=== PATIENT | male | born 1950 | race Two or more races ===

== ENCOUNTER 2017-09-13 13:50 | Emergency (ER) | payer BC ==
[~2017-09-13] VITALS: Ht 170.2 cm; Wt 68.0 kg
[2017-09-13] MEDS ORDERED: Gadavist 7.5mMol/7.5ml vial IV PRN (14:45)
--- NOTE | 2017-09-13 14:54 | Emergency Room Report ---
History of Present Illness General Chief Complaint: Nausea, Vomiting, and Diarrhea Source: Patient Present Illness HPI This patient presents with 2 episodes of isolated vertigo today. The patient states when he woke up this morning around 6 AM and he got up he had this spinning sensation. He states that at that time he felt sweaty and nauseated but had no vomiting. He states his symptoms went away. He states that he went about his day normally. He has felt well all day. 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 He states that the second time was around 1:30 today. He states that this time he became nauseated and vomited. He denies any sweating. He states that now he feels fine. He states his symptoms are not reoccurring. He denies recent trauma. He states that he did have a headache in the back of his head this morning but that is since resolved. He denies change in vision. Denies weakness. He denies tingling or numbness. He denies fever or chills. He denies neck pain. He has no other complaints. Allergies: Coded Allergies: No Known Allergies (Unverified , 09/13/17) Patient History Past Medical History: see triage record, HTN, other - HLP Social History: Reports: smoking, alcohol use; Denies: drug use Reviewed Nursing Documentation: PMH: Agreed; PSxH: Agreed Nursing Documentation-PMH Past Medical History: No History, Except For Hx Hypertension: Yes Review of Systems All Other Systems: negative except mentioned in HPI Physical Exam Vital Signs Date Time Temp Pulse Resp B/P (MAP) Pulse Ox O2 Delivery O2 Flow Rate FiO2 09/13/17 13:59 97.3 81 18 156/89 95 Room Air 97.3 Sp02 EP Interpretation: reviewed, normal General Appearance: no apparent distress, alert, GCS 15, non-toxic Head: normocephalic, atraumatic Eyes: bilateral eye normal inspection, bilateral eye PERRL ENT: hearing grossly normal, normal pharynx, no angioedema, normal voice Neck: full range of motion, supple/symm/no masses Respiratory: chest non-tender, lungs clear, normal breath sounds, speaking full sentences Cardiovascular #1: regular rate, rhythm, no edema Gastrointestinal: normal bowel sounds, non tender, soft, non-distended, no guarding, no rebound Rectal: deferred Musculoskeletal: back normal, gait/station normal, normal range of motion, non- tender Neurologic: alert, oriented x3, responsive, motor strength/tone normal, sensory intact, cerebellar normal, speech normal Psychiatric: judgement/insight normal, memory normal, mood/affect normal, no suicidal/homicidal ideation Skin: normal color, no rash, warm/dry, well hydrated Lymphatic: no adenopathy Medical Decision Making Diagnostic Impression: Primary Impression: Vertigo ER Course He had 2 episodes of vertigo with nausea and ataxia. I was concerned in this age group that he could possibly have a posterior circulation CVA. He underwent CT of the head which showed no acute findings. However, I continued to be concerned about his posterior circulations I did obtain an MRI of the brain. MRI brain showed a possible tiny area in the yeimi that could be a tiny infarct vs artifact. Inserted the patient to start taking a baby aspirin daily. There is no obvious CVA. Further discussion with the radiologist and he feels that this tiny area identified on the yeimi is likely artifactual. The patient is instructed to follow-up closely with his primary care physician. At this time I did not identify an emergency medical condition. The patient is given return precautions and follow-up instructions. Laboratory Tests Test 09/13/17 14:48 White Blood Count 13.0 K/UL (4.8-10.8) H Red Blood Count 4.91 M/UL (4.70-6.10) Hemoglobin 15.6 G/DL (14.2-18.0) Hematocrit 44.9 % (42.0-52.0) Mean Corpuscular Volume 91 FL (80-99) Mean Corpuscular Hemoglobin 31.8 PG (27.0-31.0) H Mean Corpuscular Hemoglobin Concent 34.8 G/DL (32.0-36.0) Red Cell Distribution Width 11.6 % (11.6-14.8) Platelet Count 231 K/UL (150-450) Mean Platelet Volume 7.7 FL (6.5-10.1) Neutrophils (%) (Auto) 73.9 % (45.0-75.0) Lymphocytes (%) (Auto) 18.3 % (20.0-45.0) L Monocytes (%) (Auto) 5.9 % (1.0-10.0) Eosinophils (%) (Auto) 1.3 % (0.0-3.0) Basophils (%) (Auto) 0.6 % (0.0-2.0) Sodium Level 141 MMOL/L (136-145) Potassium Level 4.1 MMOL/L (3.5-5.1) Chloride Level 106 MMOL/L (98-107) Carbon Dioxide Level 28 MMOL/L (21-32) Anion Gap 7 mmol/L (5-15) Blood Urea Nitrogen 10 mg/dL (7-18) Creatinine 0.8 MG/DL (0.55-1.30) Estimate Glomerular Filtration Rate > 60 mL/min (>60) Glucose Level 111 MG/DL (74-106) H Calcium Level 9.0 MG/DL (8.5-10.1) Total Bilirubin 0.3 MG/DL (0.2-1.0) Aspartate Amino Transferase (AST) 23 U/L (15-37) Alanine Aminotransferase (ALT) 35 U/L (12-78) Alkaline Phosphatase 169 U/L (46-116) H Troponin I 0.000 ng/mL (0.000-0.056) Total Protein 7.4 G/DL (6.4-8.2) Albumin 3.8 G/DL (3.4-5.0) Globulin 3.6 g/dL Albumin/Globulin Ratio 1.1 (1.0-2.7) Lipase 119 U/L (73-393) EKG Diagnostic Results Rate: normal Rhythm: NSR ST Segments: no acute changes Rhythm Strip Diag. Results EP Interpretation: yes Rate: 70's Rhythm: NSR, no PVC's, no ectopy CT/MRI/US Diagnostic Results CT/MRI/US Diagnostic Results : Imaging Test Ordered: CT head, MRI brain Impression CT head: No acute findings. See official report. MRI brain: Possible tiny area of restricted diffusion in the yeimi vs artifact. Incidental findings. See official report. Last Vital Signs Date Time Temp Pulse Resp B/P (MAP) Pulse Ox O2 Delivery O2 Flow Rate FiO2 09/13/17 13:59 97.3 81 18 156/89 95 Room Air 97.3 Status: improved Disposition: HOME, SELF-CARE Condition: Improved Scripts Unable to Obtain Active Prescriptions or Reported Meds KAT SAM D.O. September 13, 2017 14:53
[2017-09-13 15:01] LABS: BASOPHILS % (AUTO) 0.6 % (0.0-2.0); EOSINOPHILS % (AUTO) 1.3 % (0.0-3.0); HEMATOCRIT 44.9 % (42.0-52.0); HEMOGLOBIN 15.6 G/DL (14.2-18.0); LYMPHOCYTES % (AUTO) 18.3 % (20.0-45.0); MEAN CORPUSCULAR VOLUME 91 FL (80-99); MONOCYTES % (AUTO) 5.9 % (1.0-10.0); NEUTROPHILS % (AUTO) 73.9 % (45.0-75.0); PLATELET COUNT 231 K/UL (150-450); RED BLOOD COUNT 4.91 M/UL (4.70-6.10); RED CELL DISTRIBUTION WIDTH 11.6 % (11.6-14.8)
[2017-09-13 15:20] LABS: ANION GAP 7 mmol/L (5-15); BLOOD UREA NITROGEN 10 mg/dL (7-18); CARBON DIOXIDE 28 MMOL/L (21-32); CHLORIDE 106 MMOL/L (98-107); CREATININE 0.8 MG/DL (0.55-1.30); POTASSIUM 4.1 MMOL/L (3.5-5.1); SODIUM 141 MMOL/L (136-145)
[2017-09-13 15:27] LABS: ALANINE AMINOTRANSFERASE 35 U/L (12-78); ALBUMIN 3.8 G/DL (3.4-5.0); ALBUMIN/GLOBULIN RATIO 1.1 (1.0-2.7); ALKALINE PHOSPHATASE 169 U/L (46-116); ASPARTATE AMINO TRANSFERASE 23 U/L (15-37); BILIRUBIN,TOTAL 0.3 MG/DL (0.2-1.0)
[2017-09-13 15:30] VITALS: BP 146/84
--- NOTE | 2017-09-13 15:30 | Diagnostic Imaging Report ---
Indications: Weakness Technique: Spiral acquisitions obtained through the brain. Angled axial and coronal 5 x 5 mm slices were reconstructed. Total dose length product 1309.23 mGycm. CTDI vol(s) 70.38 mGy. Dose reduction achieved using automated exposure control Comparison: None. Findings: No acute intracranial hemorrhage or edema. No mass effect nor midline shift. There is bilateral ethmoid sinus disease. Normal-sized ventricles and extra-axial CSF spaces. Normal mayfield-white differentiation. Impression: Negative for acute intracranial bleed or mass effect Incidental finding of sinus disease The CT scanner at [facility] is accredited by the [employer] and the scans are performed using protocols designed to limit radiation exposure to as low as reasonably achievable to attain images of sufficient resolution adequate for diagnostic evaluation.
[2017-09-13 16:34] LABS: APPEARANCE,URINE CLEAR; BILIRUBIN, URINE NEGATIVE (NEGATIVE); COLOR,URINE YELLOW; GLUCOSE, URINE (UA) NEGATIVE (NEGATIVE); KETONES,URINE NEGATIVE (NEGATIVE); LEUKOCYTE ESTERASE ,URINE NEGATIVE (NEGATIVE); NITRITE,URINE NEGATIVE (NEGATIVE); PH,URINE 6 (4.5-8.0); PROTEIN,URINE NEGATIVE (NEGATIVE); UROBILINOGEN,URINE NORMAL MG/DL (0.0-1.0)
--- NOTE | 2017-09-13 17:01 | Diagnostic Imaging Report ---
Indication: Dizziness, weakness, vomiting, unsteady gait Technique: sagittal T1 fast spin echo, axial T1 and T2 FLAIR PROPELLER, axial T2 FS PROPELLER, T2* GRE, axial diffusion weighted images, post contrast axial and coronal T1 FLAIR PROPELLER images. ADC and exponential ADC maps generated Comparison: Brain CT earlier the same day Findings: . Equivocal tiny focus of restricted diffusion in the right side of the yeimi, image 8 of series 4; suspect artifactual as there is a similar less intense but otherwise symmetric abnormality on the contralateral side. No associated T2 abnormality. No other foci of restricted diffusion to suggest acute infarct. No acute hemorrhage or edema. No mass effect nor midline shift. Multiple discrete foci of high T2 signal are seen in the cerebral deep white matter bilaterally. No abnormal contrast enhancement. Normal size ventricles and extra axial CSF spaces. The vascular flow voids are preserved. There is bilateral ethmoid sinus disease. The orbits are unremarkable. Impression: . Questionable tiny focus of diffusion restriction in the right side of the yeimi. Suspect artifactual but tiny pontine lacunar infarct not completely excludable Otherwise negative for acute intracranial bleed, mass effect, infarct, or abnormal contrast enhancement Nonspecific foci of increased T2 signal in the bilateral cerebral deep white matter. Most likely areas of chronic deep white matter ischemic change. Demyelinating disease also a possibility Findings discussed by phone with Dr. Leal at the time of interpretation
[2017-09-13] MEDS ORDERED: ASPIRIN81 MG ORAL (17:07)
[2017-09-13 17:18] VITALS: BP 150/93
--- NOTE | 2017-09-14 16:55 | Cardiology Report ---
APPROVED REPORT EKG Measurement Heart [id number] Normal sinus rhythm Normal ECG
== END 2017-09-13 17:18 | disposition home or self-care (01) ==
LOC: EMR 14:45
DX: R42 Dizziness and giddiness (principal); I10 Essential (primary) hypertension
CPT/HCPCS: 36415; 70450; 70553; 80053; 81003; 82962; 83690; 84484; 85025; 93005; 96374; 96375; 99284; A9585; J2405